=== PATIENT | male | born 1975 | race Caucasian/White ===

== ENCOUNTER 2024-04-04 04:57 | Emergency (ER) | payer BC, SELFPAY ==
[2024-04-04 04:59] VITALS: BP 135/95
[2024-04-04] MEDS: TORADOL 30 MG IV (05:15)
[2024-04-04] MEDS: ZOFRAN 4 MG IV ×2 (05:15→07:27)
[2024-04-04 05:19] LABS: Urine Albumin Trace (Neg - Trace); Urine Bilirubin 1+ (Negative); Urine Character Slightly Cloudy (Clear); Urine Color Amber; Urine Glucose Negative (Negative); Urine Ketone Negative (Negative); Urine Leukocyte Trace (Negative); Urine Nitrite Negative (Negative); Urine Occult Blood 4+ (Negative); Urine Urobilinogen 1+ (Neg - 1+)
[2024-04-04 05:23] LABS: % Basophils 0.9 % (0-2); % Eosinophils 3.5 % (0-6); % Immature Granulocytes 0.3 % (0-0.5); % Lymphocytes 40.2 % (20.5-51.1); % Monocytes 8.2 % (1.7-9.3); % Neutrophils 46.9 % (42.2-75.2); Absolute Basophils 0.1 10^3/uL (0-0.2); Absolute Eosinophils 0.3 10^3/uL (0-0.7); Absolute Monocytes 0.8 10^3/uL (0.1-0.6); Absolute Neutrophils 4.6 10^3/uL (1.4-6.5); Hematocrit 46.1 % (39.0-52.0); Hemoglobin 16.4 g/dL (13.0-18.0); Mean Corp Hgb Conc. 35.6 g/dL (33.0-37.0); Mean Corpuscular Hgb 30.4 pg (27.0-31.0); Mean Corpuscular Volume 85.5 fL (80.0-94.0); Mean Platelet Volume 8.6 fL (7.4-10.4); Nucleated Red Blood Cells % 0 % (-); Platelet Count 293 10^3/uL (130-400); Red Blood Cell Count 5.39 10^6/uL (4.70-6.10); Red Cell Dist. Width 11.8 % (11.5-14.5); White Blood Cell Count 9.8 10^3/uL (4.8-10.8)
[2024-04-04 05:44] LABS: ALT (SGPT) 32 U/L (0-50); AST (SGOT) 25 U/L (17-59); Albumin 4.3 g/dl (3.5-5.0); Alkaline Phosphatase 53 U/L (38-126); Blood Urea Nitrogen 11 mg/dl (9-20); Calcium 9.6 mg/dl (8.4-10.2); Carbon Dioxide 28 mmol/L (22-30); Chloride 102 mmol/L (98-107); Glucose 125 mg/dl (70-99); Potassium 4.1 mmol/L (3.5-5.1); Sodium 141 mmol/L (135-145); Total Protein 6.6 g/dl (6.3-8.2); eGFR > 60.00
--- NOTE | 2024-04-04 05:44 | ED.GENMED ---
History of Present Illness
General
Chief Complaint: Flank Pain
Source: patient
Exam Limitations: none
Time Seen by Provider: 04/04/24 05:38
Nursing documentation reviewed up to this point in time: agreed with
History of Present Illness
History of Present Illness:
This is a 49-year-old gentleman who has remote history of kidney stones having passed a stone 13 years ago. He awoke tonight with abrupt onset of moderate to severe left flank pain that radiates to his left lower quadrant accompanied with nausea
without vomiting. Pain feels very similar to renal colic he experienced 13 years ago. He has not taken anything for discomfort.
He denies fever nor chills, no chest pain or shortness of breath, no dysuria and urgency and or hematuria, no diarrhea nor constipation.
He takes no medicines on a daily basis.
Past History
Past History
ED Past Medical History: Other (Kidney stones); Negative Arrthythmia
ED Past Surgical History: None; Negative Cardiac
Social History
Tobacco: Non-smoker
Alcohol: None
Drug: None
Personal:
Living: with family
Employment: Employed
Family History
Family History: Hypertension
Phy Exam
Physical Exam
Physical Exam:
GENERAL: 49-year-old gentleman appears his stated age, weak and alert, appears in mild distress related to pain. Somewhat restless, anxious but cooperative.
EYE: anicteric
NECK: Supple, nontender
ENT: oral mucosa is moist. No rhinorrhea.
CARDIAC: Regular rate and rhythm. no murmur.
LUNGS: Clear breath sounds bilaterally, no acute respiratory distress, no wheezes/rales/rhonchi
ABDOMEN: Soft, nondistended, without focal tenderness, no r/g, moderate left CVA tenderness with percussion. Normoactive BS.
NEUROLOGICAL: Alert and oriented x3, no focal neuro deficits. Gait is winters and steady.
SKIN: Warm and dry, normal color, skin intact. No rash.
MUSCULOSKELETAL: No C/C/E. peripheral pulses are full and equal b/l. No palpable tenderness.
PSYCH: Mildly anxious and restless related to pain. Cooperative.
Course
Orders/Labs/Results
Orders:
Orders
04/04/24 05:07
IV Insert/Care/Rem.- Treatment PRN
04/04/24 05:11
Complete Blood Count/With Diff Urgent
Comprehensive Metabolic Panel Urgent
Urinalysis Reflex To Culture Urgent
Date Specimen was Collected: 04/04/24
Time Specimen was Collected: 05:07
Urine Microscopic Reflex Cult Urgent
Urine Culture Urgent
WALT Source: U
Specimen Description:
Date Specimen was Collected: 04/04/24
Time Specimen was Collected: 05:07
04/04/24 05:14
Ketorolac [Toradol] 30 mg .ROUTE .STK-MED ONE
Ondansetron Injectable [Zofran] 4 mg .ROUTE .STK-MED ONE
Ondansetron Injectable [Zofran] 4 mg IV NOW STA
04/04/24 05:15
Ketorolac [Toradol] 30 mg IV NOW STA
04/04/24 05:18
CT Abd/pelvis Wo Iv Cont Urgent
Comment:
Reason For Exam: left flank pain
04/04/24 05:40
HYDROmorphone [Dilaudid] 0.5 mg IV NOW STA
Tamsulosin [Flomax] 0.4 mg PO NOW STA
04/04/24 06:30
HYDROmorphone [Dilaudid] 0.5 mg IV NOW STA
Abnormal Lab Results
04/04/24
05:11
Absolute Lymphs (auto) 4.0 H 10^3/uL
(1.2-3.4)
Absolute Monos (auto) 0.8 H 10^3/uL
(0.1-0.6)
Glucose 125 H mg/dl
(70-99)
Ur Occult Blood Reflex 4+ A
(Negative)
Urine Bilirubin 1+ A
(Negative)
Leukocyte Esterase Rfl Trace A
(Negative)
Urine RBC >100 A /HPF
(0-2)
Urine Bacteria (Reflex) Moderate A
(Negative)
04/04/24 05:11
04/04/24 05:11
Vital Signs
Initial and Last Documented VS:
Initial Vital Signs
Temp Pulse Resp BP Pulse Ox
97.7 F 52 20 135/95 100
04/04/24 04:59 04/04/24 04:59 04/04/24 04:59 04/04/24 04:59 04/04/24 04:59
Last Documented Vital Signs
Temp Pulse Resp BP Pulse Ox
97.7 F 61 19 135/95 98
04/04/24 04:59 04/04/24 06:13 04/04/24 06:13 04/04/24 04:59 04/04/24 06:13
MDM/Problems Addressed
Differential Diagnosis Includes:
History and exam quite concerning for renal colic on the left. Other consideration is UTI, pyelonephritis, musculoskeletal pain.
Labs are pending as is urinalysis.
Will medicate for pain and nausea with Toradol and Zofran and will check CT abdomen and pelvis.
Chronic conditions affecting care: Other (Prior history of kidney stones 13 years ago)
Acute Exacerbation and/or Progression of Chronic Illness: Other (Recurrent renal colic related to distal left ureteric stone)
*Radiology
Radiology exam reviewed: radiology read reviewed (CAT scan shows 3.5 mm stone at the left UVJ with mild hydronephrosis)
*Pulse Oximetry
Patient hypoxic: no
*Critical Care Note
Total Time (30-74mins, 75-104mins- exclusive of procedures): Not Applicable
Update Note
Update Note:
04/04/2024 0549 AM
Patient reports mild to moderate improvement in pain after IV Toradol. No further nausea.
CAT scan shows 3.5 mm stone at the distal left UVJ with mild hydro-.
CBC is unremarkable. Chemistries are unremarkable. Normal renal function.
Preliminary urinalysis shows plus for blood. Trace leukocyte Estrace. Microscopic is pending.
Will give an IV dose of Dilaudid for pain control as well as one-time dose of Flomax.
Will trial oral fluids.
04/04/2024 0630 AM
Patient continues with mild to moderate left flank pain but overall improving. No further nausea.
Will give another IV dose of Dilaudid.
Urine microscopic shows moderate bacteria but only 3-5 WBCs, not consistent with UTI.
Will plan for discharge to home with prescription for short course of oral Toradol, a few Percocet for as needed breakthrough pain as well as Zofran for as needed nausea.
Discussed importance of staying well-hydrated on a daily basis.
Will refer to urology for as needed follow-up.
Return precautions discussed.
ED Attending Note
-
Portions of this chart may have been created with voice recognition software.� Occasional wrong word or��sound alike� substitutions may have occurred due to the inherent limitations of voice recognition software.
Discharge Plan
Departure
Patient Disposition: Home (Routine Discharge)
Date of Disposition: 04/04/24
Time of Disposition: 06:32
Patient with high blood pressure during this ER visit?: No
Condition: Good
Discharge Problem:
Calculus of distal left ureter
Instructions: Kidney Stones (DC), How to Strain Your Urine
Prescriptions:
New
ketorolac 10 mg tablet
10 mg PO Q6H 4 Days Qty: 16 0RF
oxycodone-acetaminophen [Percocet] 5-325 mg Tablet
1 tab PO Q4HPRN PRN (Reason: pain) Qty: 6 0RF
ondansetron 4 mg tablet,disintegrating
4 mg PO QID PRN (Reason: nausea and vomiting) Qty: 20 0RF
No Action
acetaminophen 325 MG tablet
650 mg PO Q4HPRN PRN (Reason: pain)
ondansetron HCl 4 MG tablet
4 mg PO Q8HPRN PRN (Reason: Nausea/Vomiting) Qty: 10 0RF
hydrocodone-acetaminophen [Vicodin] 1 EACH tablet
1 ea PO Q4HPRN PRN (Reason: Pain) Qty: 20 0RF
Rx Instructions:
You may take one or two tabs as needed for pain.
Referrals:
Nicolás Ramirez MD [Active] - As needed
Interventions
Interventions:
*Risk Screen - Suicide Last Done: 04/04/24 04:59
*General Assessment Last Done: 04/04/24 04:59
*Neglect/Abuse Screening Last Done: 04/04/24 04:59
ED- Fall Risk Assessment Last Done: 04/04/24 04:59
*ED COVID-19 Vaccine History Last Done: 04/04/24 05:09
FA-Jsddwi-Lipnbdzyvh Assessment Last Done: 04/04/24 05:09
ED-Male Genitourinary Assessment Last Done: 04/04/24 05:09
Discharge Date and Time
Print Language: PANAMANIAN
[2024-04-04] MEDS: FLOMAX 0.4 MG PO (05:45)
[2024-04-04] MEDS: DILAUDID 0.5 MG IV ×2 (05:45→07:19)
[2024-04-04 05:59] LABS: Urine Calcium Oxalate Crystals Seen; Urine Mucus Few
[2024-04-04 06:01] LABS: Urine Bacteria Moderate (Negative); Urine Red Blood Cell >100 /HPF (0-2)
[2024-04-04 07:34] VITALS: BP 133/94
[2024-04-04 08:28] VITALS: BP 133/84
== END 2024-04-04 08:45 | disposition home or self-care (01) ==
LOC: EMR 04:57
PROVIDERS: EMERGENCY PHYSICIAN Emergency Medicine; FAMILY PHYSICIAN Family Medicine
DX: N13.2 Hydronephrosis with renal and ureteral calculous obstruction (principal)
CPT/HCPCS: 99284; 96374; 96375 ×2; 96376 ×2; 74176; 80053; 81003; 81015; 85025; 87086

== ENCOUNTER 2024-12-11 06:20 | Day surgery (SDC) | payer BC, SELFPAY | END 2024-12-11 12:03 | disposition home or self-care (01) | LOC: GI 06:20 | PROVIDERS: ATTENDING PHYSICIAN Internal Medicine Gastroenterology | DX: Z12.11 Encounter for screening for malignant neoplasm of colon (principal); D12.0 Benign neoplasm of cecum; D12.3 Benign neoplasm of transverse colon; K63.5 Polyp of colon; K63.3 Ulcer of intestine; K63.89 Other specified diseases of intestine; K57.30 Diverticulosis of large intestine without perforation or abscess without bleeding; K64.8 Other hemorrhoids | CPT/HCPCS: 45385; 45380; 88305 ==